=== PATIENT | male | born 1960 | race Asian ===

== ENCOUNTER 2022-06-21 15:23 | Emergency (ER) | payer OTHER ==
[~2022-06-21] VITALS: Ht 165.1 cm; Wt 68.2 kg
[~2022-06-21 15:23] MED LIST: INDO50CA97 PO
[2022-06-21] MEDS ORDERED: ALLO-97 PO (15:42)
[2022-06-21] MEDS ORDERED: COLC0.6T73 PO (15:42)
[2022-06-21 15:45] VITALS: BP 144/96
[2022-06-21] MEDS ORDERED: DEXAMETHASONE SOD PHOS 4 MG/ML 5 ML VIAL IM ONE (16:00)
[2022-06-21] MEDS ORDERED: KETOROLAC TROMETHAMINE 30 MG/ML VIAL IM ONE (16:00)
== END 2022-06-21 19:08 | disposition home or self-care (01) ==
LOC: EMS 15:31
DX: M10.9 Gout, unspecified (principal); F17.210 Nicotine dependence, cigarettes, uncomplicated
CPT/HCPCS: 99284; 96372; J1100; J1885